=== PATIENT | male | born 1945 | race Caucasian/White ===

== ENCOUNTER 2020-03-22 03:31 | Outpatient (CLI) | payer MEDICARE, SELFPAY ==
[2020-03-22 20:39] LABS: SARS-CoV-2 RNA PCR Positive
== END 2020-03-22 03:32 | disposition home or self-care (01) ==
LOC: ANHCOVIDDT 03:33
PROVIDERS: PCP Internal Medicine; Visit Provider Internal Medicine Cardiovascular Disease
DX: Z01.812 Encounter for preprocedural laboratory examination (principal); U07.1 COVID-19
CPT/HCPCS: 87635; C9803; U0003